=== PATIENT | female | born 1955 | race Caucasian/White ===

== ENCOUNTER → 2023-09-13 14:49 | Outpatient (REF) | payer MEDICARE, OTHER, SELFPAY | LOC: WDC 14:49 | PROVIDERS: ATTENDING PHYSICIAN Nurse Practitioner Adult Health; FAMILY PHYSICIAN Family Medicine | DX: Z12.31 Encounter for screening mammogram for malignant neoplasm of breast (principal) | CPT/HCPCS: 77063; 77067 ==

== ENCOUNTER → 2024-10-17 15:12 | Outpatient (REF) | payer MEDICARE, OTHER, SELFPAY | LOC: WDC 15:12 | PROVIDERS: ATTENDING PHYSICIAN Nurse Practitioner Adult Health; FAMILY PHYSICIAN Family Medicine | DX: Z12.31 Encounter for screening mammogram for malignant neoplasm of breast (principal) | CPT/HCPCS: 77063; 77067 ==